=== PATIENT | male | born 1960 | race African-American/Black ===

== ENCOUNTER 2021-06-08 01:37 | Emergency (ER) | payer OTHER ==
[~2021-06-08] VITALS: Ht 185.4 cm; Wt 77.3 kg
--- NOTE | 2021-06-08 02:11 | PHYS DOC ---
Past Medical History Past Medical History: Cancer, Hypertension Additional Past Medical Histor: POOR HISTORIAN Past Medical History Limited secondary to ETOH intoxication Past Surgical History: No Surgical History Past Surgical History Limited secondary to ETOH intoxication Smoking Status: Current Every Day Smoker Alcohol Use: Occasionally Drug Use: None Social History Limited secondary to ETOH intoxication General Adult EDM: Chief Complaint: MECHANICAL FALL HPI: HPI: Patient is a 60-year-old male with past medical history of hypertension and lung cancer presenting by EMS for a fall that occurred this evening after getting out of his [employer]. He reports that he was drinking tonight and cannot remember if he fell, passed out, or just got tired. He denies pain anywhere, but states that he was bleeding from a wound on his forehead. He reports he is on blood thinners. He denies chest pain, shortness of breath, abdominal pain, and dizziness. He denies drug use. Patient reports he cannot recall when his last tetanus booster was but thinks it was greater than 5 years ago. History of present illness limited secondary to ETOH intoxication Review of Systems: Review of Systems: Constitutional: Denies fever or chills HENT: Denies epistaxis Respiratory: Denies cough or shortness of breath Cardiovascular: Denies chest pain or palpitations GI: Denies abdominal pain, nausea, or vomiting Musculoskeletal: Denies neck pain Integument: Denies rash; reports facial laceration Neurologic: Denies headache Review of systems limited secondary to alcohol intoxication. Heart Score: C/O Chest Pain: N/A Current Medications: Current Medications Medications (Trade) Dose Ordered Sig/Carri Start Time Stop Time Status Last Admin Dose Admin Lidocaine/ Epinephrine (LIDOCAINE 2%-EPI 1:100,000 multi-dose) 20 ml 1X ONCE 06/08/21 02:15 06/08/21 02:16 Multivitamins 10 ml/Thiamine HCl 100 mg/Folic Acid 1 mg/Sodium Chloride 1,011.2 ml @ 1,000.088 mls/hr 1X ONCE 06/08/21 02:00 06/08/21 03:00 UNV Neomycin/ Polymyxin/ Bacitracin (Triple Antibiotic Ointment) 1 pkt 1X ONCE 06/08/21 02:15 06/08/21 02:16 Allergies: Allergies: Allergies Coded Allergies Type Severity Reaction Last Updated Verified No Known Drug Allergies 06/08/21 No Physical Exam: PE: Constitutional: Well developed, well nourished, no acute distress, non-toxic appearance HENT: Normocephalic, 4 cm laceration present superior to R eyebrow, bleeding controlled Eyes: Pinpoint pupils, conjunctiva normal, no discharge, horizontal nystagmus noted Neck: No tenderness to palpation, supple Lungs & Thorax: No respiratory distress, equal chest rise and fall Abdomen: Soft, no tenderness; pelvis stable and nontender Skin: Warm, dry, no rash, right eyebrow laceration noted as above Back: No midline tenderness to palpation Extremities: No tenderness, able to move all extremities, pitting edema present b/l to knees Neurologic: Alert and oriented X 3, intoxicated, normal motor function, normal sensory function, no focal deficits noted Psychologic: Affect normal, judgment abnormal Current Patient Data: Vital Signs: Vital Signs Date Time Temp Pulse Resp B/P (MAP) Pulse Ox O2 Delivery O2 Flow Rate FiO2 06/08/21 01:46 97.7 77 15 133/75 (94) 100 Room Air 97.7 EKG: EKG: Completed at 01:54, normal sinus at 66 bpm with baseline artifact, no acute ST segment changes, QRS 84 ms, QT/QTc 467 ms Radiology/Procedures: Radiology/Procedures: PROCEDURE: CT HEAD AND CERVICAL SPINE WO RS Compliance Statement: One or more of the following individualized dose reduction techniques were utilized for this examination: 1. Automated exposure control 2. Adjustment of the mA and/or kV according to patient size 3. Use of iterative reconstruction technique CT head and cervical spine without contrast 06/08/2021 2:03 AM INDICATION: Fall, laceration. EtOH. COMPARISON: None available TECHNIQUE: Multiple axial CT images of the head were obtained from skull base through the vertex without intravenous contrast. Multiple axial CT images of the cervical spine were obtained without intravenous contrast. Coronal and sagittal reformats are provided. FINDINGS: Head: Ventricles, sulci and basal cisterns are within normal limits. There is no hydrocephalus. There is no acute intracranial hemorrhage. There is vasogenic edema involving the left parieto-occipital lobe with associated sulcal effacement and mass effect on the occipital horn of the left lateral ventricle. There may be an intracranial intra-axial mass measuring approximately 1.2 cm in the left parietal lobe. Further characterization with MRI brain with and without contrast is recommended. Posterior fossa is normal in appearance. Visualized portions of the orbits are normal. Paranasal sinuses are well aerated. Mastoid air cells are well aerated. Scalp and calvaria are normal. Cervical spine: Skull base is intact. Craniocervical junction is normal in appearance. Atlantoaxial articulation is normal. Vertebral body heights are maintained without evidence for acute fracture. At C3-C4, there is severe right and moderate left facet arthropathy and mild uncovertebral joint disease resulting in moderate right and mild to moderate left neuroforaminal stenosis. At C5-C6, there is a posterior disc osteophyte complex with mild to moderate facet and moderate uncovertebral joint disease resulting in moderate bilateral neural foraminal stenosis. At C6-C7, there is a posterior disc osteophyte complex with moderate facet and uncovertebral joint d isease resulting in severe bilateral neural femoral stenosis. Minimal anterolisthesis of C7 on T1. Transverse foramen are intact. There is no prevertebral soft tissue swelling. Thyroid gland is normal in appearance. Right pleural effusion with pleural thickening. Calcified pleural plaque identified at the medial right upper lobe. IMPRESSION: 1. No acute intracranial hemorrhage. Vasogenic edema in the left parietal and occipital lobes result in sulcal effacement without significant midline shift or hemorrhage. Further catheterization with MRI brain with and without contrast is recommended. There may be a subtle 1.2 cm mass in the left parietal lobe. 2. No acute fracture of the cervical spine. Moderate cervical spondylosis. 3. Right pleural effusion with pleural thickening. Calcified pleural plaque identified at the medial right upper lobe. Course & Med Decision Making: Course & Med Decision Making Pertinent Labs and Imaging studies reviewed. (See chart for details) Patient is a 60-year-old male with past medical history of hypertension and lung cancer presenting after a fall with facial laceration. Patient with EtOH on board. CT spine showed no acute fracture, CT head showed no acute hemorrhage but did show evidence of potential mass in the left parietal lobe and vasogenic edema. He states that he is aware of this, recently had an MRI done about 2 weeks ago. Laceration cleansed and repaired, dressing applied. IV fluids with thiamine given. Tetanus updated. CBC showed slight anemia and leukopenia. CMP demonstrated acute renal insufficiency and slight hypokalemia. Hypokalemia addressed. Troponin negative. Patient clinically sober and able to follow commands. Patient stable for discharge with outpatient follow-up with PCP. Discussed findings and plan with patient, who acknowledges understanding and agreement. Marisa Disclaimer: Marisa Disclaimer: This electronic medical record was generated, in whole or in part, using a voice recognition dictation system. Laceration/Wound Repair Laceration/Wound Repair : Wound Location: head Wound's Depth, Shape: superficial, linear Wound Length (cm): 4 Wound Explored: clean Irrigated w/ Saline (ccs): 200 Anesthesia: Lidocaine w/ Epi (2%) Volume Anesthetic (ccs): 2 Wound Debrided: minimal Wound Repaired With: sutures Suture Size/Type: 6:0, nylon Number of Sutures: 9 Layer Closure?: No Sterile Dressing Applied?: Yes Progress Verbal consent obtained. Time out performed. Hand hygiene utilized. Wound cleaned with ChloraPrep. Anesthesia obtained via a 25-gauge hypodermic needle with 2 mL's of lidocaine 2% with epinephrine. Copious irrigation performed. Wound well approximated with 9x 6-0 ethilon sutures. Patient tolerated procedure well and without difficulty. Empiric antibiotic ointment applied prior to sterile dressing. Departure Departure Impression: Primary Impression: Alcohol intoxication Qualified Codes: F10.920 - Alcohol use, unspecified with intoxication, uncomplicated Additional Impressions: Hypokalemia Facial laceration Qualified Codes: S01.81XA - Laceration without foreign body of other part of head, initial encounter Disposition: 01 HOME / SELF CARE / HOMELESS Condition: STABLE Patient Instructions: Alcohol Intoxication, Ivoc-fk-Elmt, Alcohol and Drug Addiction, Finding Treatment, Hypokalemia, Laceration Care, Adult, [id number], Potassium Content of Foods Additional Instructions: Do not soak your wound. You may shower. Clean wound daily with soap and water. Change dressing 2 times daily. Use over the counter antibiotic ointment with each dressing change. Sutures need to be removed in 5 days. Present to your family doctor or local urgent care for removal. You may also present to the ED but it will be an additional visit/charge. After suture removal you may use Vitamin E ointment to soften the wound and prevent scarring. Take [id number] ibuprofen and or Tylenol for pain or discomfort. Please call [facility] at to seek help for your mental health and/or drug/alcohol abuse. MATTHEW PUCKETT DO Jun 08, 2021 02:11
[2021-06-08] MEDS ORDERED: LIDOCAINE 2%/EPI 1:100,000 20 ML VIAL. INJ ONE (02:15)
[2021-06-08] MEDS ORDERED: NEOMY/BACITR/POLYMYXIN OINT PACKET. TP ONE (02:15)
--- NOTE | 2021-06-08 02:21 | EKG ---
[facility] [address] [place] [address] Test Date: 2021-06-08 Test Time: 01:54:50 Pat Name: CHANDA STARK Department: Room: Gender: M Higher Education Administrator: : 1960 Requested By: MATTHEW PUCKETT Order Number: [id number] Reading MD: Femi Hawkins Measurements Intervals [place] Rate: 66 P: MD: QRS: 33 QRSD: 84 T: 79 QT: 444 QTc: 467 Interpretive Statements SINUS RHYTHM T ABNORMALITY IN HIGH LATERAL LEADS ABNORMAL ECG RI6.01 No previous ECG available for comparison Electronically Signed On 06-10-2021 9:32:16 [employer] by Femi Hawkins
--- NOTE | 2021-06-08 02:28 | RAD ---
PQRS Compliance Statement: One or more of the following individualized dose reduction techniques were utilized for this examinat ion: 1. Automated exposure control 2. Adjustment of the mA and/or kV according to patient size 3. Use of iterative reconstruction technique CT head and cervical spine without contrast 06/08/2021 2:03 AM INDICATION: Fall, laceration. EtOH. COMPARISON: None available TECHNIQUE: Multiple axial CT images of the head were obtained from skull base through the vertex with out intravenous contrast. Multiple axial CT images of the cervical spine were obtained without intrav enous contrast. Coronal and sagittal reformats are provided. FINDINGS: Head: Ventricles, sulci and basal cisterns are within normal limits. There is no hydrocephalus. There is no acute intracranial hemorrhage. There is vasogenic edema involving the left parieto-occipital lobe wi th associated sulcal effacement and mass effect on the occipital horn of the left lateral ventricle. There may be an intracranial intra-axial mass measuring approximately 1.2 cm in the left parietal lob e. Further characterization with MRI brain with and without contrast is recommended. Posterior fossa is normal in appearance. Visualized portions of the orbits are normal. Paranasal sinuses are well aerated. Mastoid air cells a re well aerated. Scalp and calvaria are normal. Cervical spine: Skull base is intact. Craniocervical junction is normal in appearance. Atlantoaxial articulation is n ormal. Vertebral body heights are maintained without evidence for acute fracture. At C3-C4, there is severe right and moderate left facet arthropathy and mild uncovertebral joint dise ase resulting in moderate right and mild to moderate left neuroforaminal stenosis. At C5-C6, there is a posterior disc osteophyte complex with mild to moderate facet and moderate uncovertebral joint dis ease resulting in moderate bilateral neural foraminal stenosis. At C6-C7, there is a posterior disc o steophyte complex with moderate facet and uncovertebral joint disease resulting in severe bilateral n eural femoral stenosis. Minimal anterolisthesis of C7 on T1. Transverse foramen are intact. There is no prevertebral soft tissue swelling. Thyroid gland is normal in appearance. Right pleural e ffusion with pleural thickening. Calcified pleural plaque identified at the medial right upper lobe. IMPRESSION: 1. No acute intracranial hemorrhage. Vasogenic edema in the left parietal and occipital lobes result in sulcal effacement without significant midline shift or hemorrhage. Further catheterization with MR I brain with and without contrast is recommended. There may be a subtle 1.2 cm mass in the left parie prudencio lobe. 2. No acute fracture of the cervical spine. Moderate cervical spondylosis. 3. Right pleural effusion with pleural thickening. Calcified pleural plaque identified at the medial right upper lobe. FOR INTERNAL CODING PURPOSES Critical result: Findings discussed with Dr. Parra at 06/08/2021 2:25 AM. RESULT CODE: (C) Electronically signed by: Tosha Swain MD (06/08/2021 2:25 AM) [facility]
[2021-06-08] MEDS ORDERED: MULTIVIT INFUSN,ADULT 4,VIT K 10 ML, THIAMINE INJ 100 MG, FOLIC ACID INJ 1 MG in IV NOR... IV ONE (02:30)
[2021-06-08] MEDS ORDERED: DIPH,PERTUSS(ACELL),TET VAC/PF 0.5 ML SYRINGE. VAX IM ONE (03:00)
[2021-06-08 03:13] LABS: BASO # 0.1 x10^3/uL (0.0-0.2); BASO % 2 % (0-3); EOS # 0.1 x10^3/uL (0.0-0.7); EOS % 2 % (0-3); HEMATOCRIT 26.9 % (39.0-53.0); HEMOGLOBIN 8.9 g/dL (13.0-17.5); LYMPH # 0.4 x10^3/uL (1.0-4.8); LYMPH % 12 % (24-48); MEAN CORPUSCULAR HEMOGLOBIN 35 pg (25-35); MEAN CORPUSCULAR HGB CONC 33 g/dL (31-37); MEAN CORPUSCULAR VOLUME 105 fL (79-100); MONO # 0.2 x10^3/uL (0.0-1.1); MONO % 7 % (0-9); NEUT # 2.8 x10^3/uL (1.8-7.7); NEUT % 78 % (31-73); PLATELET COUNT 193 x10^3/uL (140-400); RED BLOOD COUNT 2.56 x10^6/uL (4.30-5.70); RED CELL DISTRIBUTION WIDTH 18.2 % (11.5-14.5); WHITE BLOOD COUNT 3.6 x10^3/uL (4.0-11.0)
[2021-06-08 03:22] LABS: CALCIUM 8.4 mg/dL (8.5-10.1); CREATININE 1.8 mg/dL (0.7-1.3); GFR 38.7; POTASSIUM 3.3 mmol/L (3.5-5.1)
[2021-06-08 03:29] LABS: ALBUMIN 3.3 g/dL (3.4-5.0); TOTAL BILIRUBIN 0.3 mg/dL (0.2-1.0); TOTAL PROTEIN 6.6 g/dL (6.4-8.2)
[2021-06-08 04:23] VITALS: BP 143/86
[2021-06-08 04:25] LABS: BILIRUBIN,URINE NEGATIVE (NEG); CLARITY,URINE CLEAR; COLOR,URINE YELLOW; NITRITE,URINE NEGATIVE (NEG); PH,URINE 5.5 (<5.0-8.0); PROTEIN,URINE NEGATIVE (NEG-TRACE); UROBILINOGEN,URINE 0.2 mg/dL (0.2 mg/dL)
[2021-06-08] MEDS ORDERED: POTASSIUM CHLORIDE 20 MEQ TABLET.ER. PO ONE (04:30)
[2021-06-08 04:32] LABS: AMPHETAMINE/METHAMPHETAMINE NEG (NEG); BARBITURATES NEG (NEG); BENZODIAZEPINES NEG (NEG); CANNABINOIDS NEG (NEG); COCAINE NEG (NEG); METHADONE NEG (NEG); OPIATES NEG (NEG); PHENCYCLIDINE NEG (NEG)
[2021-06-08 04:37] LABS: BACTERIA,URINE 0 /HPF (0-FEW); RBC,URINE 0 /HPF (0-2); WBC,URINE 0 /HPF (0-4)
[2021-06-08] MEDS ORDERED: IOHEXOL 300 MG/ML 100ML VIAL. ONE (18:13)
== END 2021-06-08 04:39 | disposition home or self-care (01) ==
LOC: ER 01:37
DX: S01.81XA Laceration without foreign body of other part of head, initial encounter (principal); I10 Essential (primary) hypertension; F10.20 Alcohol dependence, uncomplicated; Y90.8 Blood alcohol level of 240 mg/100 ml or more; F17.200 Nicotine dependence, unspecified, uncomplicated; W18.39XA Other fall on same level, initial encounter; Y93.89 Activity, other specified; Y92.89 Other specified places as the place of occurrence of the external cause; Y99.8 Other external cause status
CPT/HCPCS: 12002; 36415; 70450; 72125; 80053; 80307; 81001; 82553; 83690; 83735; 84484; 85025; 85610; 85730; 90471; 90715; 93005; 96365; 96366; 99285; G0480; J3411; J3490; J7030

== ENCOUNTER 2021-06-17 17:21 | Emergency (ER) | payer OTHER | END 2021-06-17 21:02 | disposition left against medical advice (07) | LOC: ER 17:21 | DX: Z48.02 Encounter for removal of sutures (principal); Z53.21 Procedure and treatment not carried out due to patient leaving prior to being seen by health care provider ==